=== PATIENT | female | born 1995 | race Caucasian/White ===

== ENCOUNTER → 2017-10-11 13:23 | Outpatient (CLI) | payer SELFPAY ==
[2017-10-11 15:30] LABS: Chlamydia Trachomatis by PCR Negative (Negative); Neisserai gonorrhoeae by PCR Negative (Negative); Probe Check PASS; Sample Adequacy Control PASS; Specimen Processing Control PASS
[2017-10-17 14:54] LABS: HPV Reflexed? NOT INDICATED
== END ==
PROVIDERS: Visit Provider Obstetrics & Gynecology
DX: Z12.4 Encounter for screening for malignant neoplasm of cervix (principal)
CPT/HCPCS: 87491; 87591; 88175; G0145

== ENCOUNTER → 2017-10-17 16:12 | Outpatient (CLI) | payer SELFPAY ==
[2017-10-17 17:29] LABS: hCG Titer Quant., Serum < 1 mIU/mL (<9 non-preg)
[2017-10-18 10:24] LABS: Progesterone Level 0.41 ng/mL (See Comment)
== END ==
PROVIDERS: Family Provider Family Medicine; PCP Family Medicine; Visit Provider Obstetrics & Gynecology
DX: Z30.430 Encounter for insertion of intrauterine contraceptive device (principal)
CPT/HCPCS: 36415; 84144; 84702

== ENCOUNTER → 2018-12-25 10:11 | Outpatient (CLI) | payer SELFPAY ==
[2018-12-30 16:59] LABS: HPV Reflexed? NOT INDICATED
== END ==
PROVIDERS: Family Provider Family Medicine; PCP Family Medicine; Visit Provider Obstetrics & Gynecology
DX: Z12.4 Encounter for screening for malignant neoplasm of cervix (principal)
CPT/HCPCS: 88175; G0145

== ENCOUNTER → 2019-10-13 14:56 | Outpatient (CLI) | payer OTHER, SELFPAY ==
[2019-10-13 15:54] LABS: hCG Titer Quant., Serum 25760 mIU/mL (1-3)
== END ==
PROVIDERS: PCP Family Medicine; Visit Provider Obstetrics & Gynecology
DX: O20.0 Threatened abortion (principal); Z3A.00 Weeks of gestation of pregnancy not specified
CPT/HCPCS: 36415; 84702; 86900; 86901

== ENCOUNTER → 2019-10-15 15:10 | Outpatient (CLI) | payer OTHER, SELFPAY | PROVIDERS: PCP Family Medicine; Visit Provider Obstetrics & Gynecology | DX: O20.0 Threatened abortion (principal) | CPT/HCPCS: 36415; 84702 ==

== ENCOUNTER → 2019-10-20 | Outpatient (CLI) | payer OTHER, SELFPAY ==
[2019-10-20 18:53] LABS: Chlamydia Trachomatis by PCR Negative (Negative); Neisserai gonorrhoeae by PCR Negative (Negative); Probe Check PASS; Sample Adequacy Control PASS; Specimen Processing Control PASS
== END | disposition home or self-care (01) ==
LOC: LABSPEC 15:00
PROVIDERS: PCP Family Medicine; Visit Provider Obstetrics & Gynecology
DX: Z11.3 Encounter for screening for infections with a predominantly sexual mode of transmission (principal); Z32.01 Encounter for pregnancy test, result positive
CPT/HCPCS: 87491; 87591

== ENCOUNTER → 2019-11-03 13:51 | Outpatient (CLI) | payer OTHER, SELFPAY ==
[2019-11-03 15:53] LABS: Color, Urine Yellow (Yellow); Glucose, Dipstick Normal (Normal); Ketone-Dipstick Negative (Negative); Leukocyte Esterase-Dipstick 25 /ul (Negative); Nitrite-Dipstick Negative (Negative); Occult Blood-Urine Negative /ul (Negative); Protein-Dipstick Negative (Negative); Specific Gravity, Urine 1.015 (1.002-1.030); Urine Bilirubin Dipstick Negative (Negative); Urine Clarity Sl. Cloudy (Clear); Urine Urobilinogen Normal (Normal)
[2019-11-03 15:54] LABS: Amphetamine Urine VISTA NEGATIVE (<1000 ng/mL); Barbiturate Urine VISTA NEGATIVE (< 200 ng/mL); Benzodiazepine Urine VISTA NEGATIVE (< 200 ng/mL); Cocaine Urine VISTA NEGATIVE (< 300 ng/mL); Ecstacy Urine VISTA NEGATIVE (< 500 ng/mL); Methadone Urine VISTA NEGATIVE (< 300 ng/mL); PCP Urine VISTA NEGATIVE (< 25 ng/mL); THC Urine VISTA NEGATIVE (< 50 ng/mL); Vista UDS pH Range 6
[2019-11-03 15:59] LABS: Absolute Neutrophil Count 6.4 X10^3/uL (2.0-7.7); Basophil# 0.02 X10^3/uL; Basophil% 0.2 % (0-1); Eosinophil# 0.12 X10^3/uL; Eosinophils% 1.4 % (0-5); Hematocrit 40.5 % (37-47); Hemoglobin 13.9 g/dL (12.0-15.0); Lymphocyte % 16.3 % (19-41); Mean Corp Hgb Conc 34.3 g/dL (32-36); Mean Corpuscular Hgb 33.3 pg (27.0-32.0); Mean Corpuscular Volume 96.9 fL (81-99); Mean Platelet Vol. 11.7 fl (6.2-12.0); Monocyte# 0.65 X10^3/uL; Monocyte% 7.6 % (0-10); NRBC Flagged by Analyzer 0 % (0-5); Neutrophil # 6.36 X10^3/uL (2.7-7.7); Neutrophil % 74.3 % (47-70); Platelet Count 225 K/mm3 (150-450); RBC Distribution Width CV 11.9 % (11.6-14.6); RBC Distribution Width SD 41.9 fl (35.1-43.9); Red Blood Count 4.18 M/mm3 (4.2-5.4); White Blood Count 8.6 K/mm3 (4.4-11.0)
[2019-11-03 16:02] LABS: Thyroid Stim Hormone (TSH) 0.54 uIU/mL (0.358-3.74)
[2019-11-04 09:55] LABS: HIV - WCH Non-Reactive (Nonreactive); Hepatitis B Surface Antigen Non-Reactive (Nonreactive); Hepatitis C Antibody Non-Reactive (Nonreactive); Rubella IgG 24.6 IU/mL
[2019-11-05 01:57] LABS: Prenatal RPR NONREACTIVE (NONREACTIVE)
== END ==
PROVIDERS: PCP Family Medicine; Visit Provider Obstetrics & Gynecology
DX: Z34.81 Encounter for supervision of other normal pregnancy, first trimester (principal)
CPT/HCPCS: 36415; 80307; 81002; 84443; 85025; 86703; 86762; 86803; 87340

== ENCOUNTER 2019-12-13 05:47 | Emergency (ER) | payer OTHER, SELFPAY ==
[2019-12-13 05:47] VITALS: BP 111/84; PULSE 81; RESP 18; TEMP 36.8; O2SAT 99; BMI 29.5
--- NOTE | 2019-12-13 06:01 | US_ITS ---
STUDY: SECOND AND THIRD TRIMESTER OBSTETRICAL ULTRASOUND - LIMITED REASON FOR EXAM: Female, 24 years old VAGINAL BLEEDING W/ 28328 HCG LMP: September 01, 2019 PRIOR ULTRASOUND: None. TECHNIQUE: Transabdominal and Transvaginal TECHNICAL QUALITY: Adequate. FINDINGS: There is a single intrauterine fetus. The fetus is in a breech presentation. There is demonstrated cardiac activity with a heart rate of 152 bpm. There is a normal amniotic fluid volume. The largest amniotic fluid pocket measures 4.3 cm The placenta is posterior in location and is not low lying. There are Grade 1 placental changes. The cervix measures 4.0 cm in length. BIOMETRY: BPD: 3.1 cm: 15 weeks, 6 days HC: 11.4 cm: 15 weeks, 5 days AC: 9.7 cm: 15 weeks, 6 days FL: 1.7 cm: 15 weeks, 1 days Age by LMP: 14 weeks, 5 days. BONIFACIO by LMP: June 07, 2019. age by prior US: 15 weeks, 5 days. BONIFACIO by prior US: May 31, 2019. Estimated weight: 12+ grams, +/- 18 grams, 88 percentile. US/OB Limited With Biometrics IMPRESSION: Single intrauterine gestation 15 weeks 5 days with estimated due date May 31, 2019. Electronically Signed: Ruslan Martin MD at 8:26 EDT , Service support ,
[2019-12-13 06:14] LABS: Absolute Neutrophil Count 6.5 X10^3/uL (2.0-7.7); Basophil# 0.01 X10^3/uL; Basophil% 0.1 % (0-1); Eosinophil# 0.13 X10^3/uL; Eosinophils% 1.5 % (0-5); Hematocrit 38.4 % (37-47); Hemoglobin 13.1 g/dL (12.0-15.0); Mean Corp Hgb Conc 34.1 g/dL (32-36); Mean Corpuscular Hgb 33.2 pg (27.0-32.0); Mean Corpuscular Volume 97.2 fL (81-99); Mean Platelet Vol. 11.3 fl (6.2-12.0); Monocyte% 6.7 % (0-10); NRBC Flagged by Analyzer 0 % (0-5); Neutrophil # 6.51 X10^3/uL (2.7-7.7); Neutrophil % 73.3 % (47-70); Platelet Count 200 K/mm3 (150-450); RBC Distribution Width CV 12.1 % (11.6-14.6); RBC Distribution Width SD 43.5 fl (35.1-43.9); Red Blood Count 3.95 M/mm3 (4.2-5.4); White Blood Count 8.9 K/mm3 (4.4-11.0)
[2019-12-13 06:18] LABS: Bacteria 0 SEEN /hpf (None Seen); Mucous, Urine 0 SEEN /hpf (<or=2+); White Blood Cells 0 SEEN /hpf (0-5)
[2019-12-13 06:20] LABS: Color, Urine Yellow (Yellow); Glucose, Dipstick Normal (Normal); Ketone-Dipstick Negative (Negative); Leukocyte Esterase-Dipstick Negative /ul (Negative); Nitrite-Dipstick Negative (Negative); Occult Blood-Urine 250 /ul (Negative); Protein-Dipstick Negative (Negative); Specific Gravity, Urine 1.005 (1.002-1.030); Urine Bilirubin Dipstick Negative (Negative); Urine Clarity Clear (Clear); Urine Urobilinogen Normal (Normal)
[2019-12-13 06:29] LABS: Red Blood Cells-Urine 0-5 SEEN /hpf (0-5)
--- NOTE | 2019-12-13 06:29 | ED.VIS.GEN ---
History of Present Illness Chief Complaint: Vag Bld, Preg Informant: Patient Narrative: He 24-year-old A0 at 14 weeks gestation presenting with vaginal bleeding. She states she had an episode of this at 6 weeks which resolved. She had a confirmatory intrauterine ultrasound at 7 weeks and they stated that the baby was fine. She states it was done at this facility. She has not had rebleeding since last night when she started to feel blood. She describes a popping sound in her abdomen prior to the start of this. She does states she passed a clot the size of an egg. She did not see any tissue. She does not know if she is Rh+ or negative. Prior similar symptoms: Yes Past Medical History - Allergies and Home Meds Allergies/Adverse Reactions: Allergies No Known Allergies Allergy (Verified 12/13/19 05:51) Primary Care Physician: Alvaro Ervin DO [Primary Care Provider] - Prior records reviewed: Yes Lives: Spouse/ Significant Other Smoking Status: Never smoker Alcohol: None Drugs: None Review of Systems General: Denies: Chills, Fever Eyes: Denies: Visual changes - bilaterally ENT: Denies: Rhinorrhea, Sore throat Cardiovascular: Denies: Chest pain, Palpitations Respiratory: Denies: Dyspnea, Cough Gastrointestinal: Reports: Abdominal pain Genitourinary: Reports: - - Vaginal bleeding. Denies: Dysuria, Hematuria Musculoskeletal: Denies: Myalgias, Arthralgias Skin: Denies: Rash Neurological: Denies: Headache Physical Exam Vital Signs/Narrative: Vital Signs Temp Pulse Resp BP Pulse Ox 12/13/19 05:47 98.2 F 81 18 111/84 H 99 General: Well nourished, Well developed, No Acute Distress Head: Atraumatic Eyes: Perrl. Negative for: Pale conjunctiva ENT: Moist mucous membranes Cardiovascular: Regular rate, Regular rhythm Abdomen: Soft, Nontender : - - Cervical office appears closed however there in the posterior fornix. No other lesions are identified. Adnexal tenderness. Back: Negative for: Nontender Skin: Normal color, Pallor Diagnostic/Tx/Re-eval - Medical Decision Making Patient was seen and evaluated for vaginal bleeding. She states she did pass some clots as well. She is 14 weeks along. She has had bleeding in the past. She did not know she was Rh+ or negative so I did order this today. Serum quant is ordered. On pelvic exam she does have some blood in the posterior fornix however the cervical os appears closed. Given that she had some pain prior to this I did order an ultrasound which is pending. Patient will be signed out to incoming ED doc to follow-up on labs and imaging. Patient is medically stable at this time. ED Disposition - Plan for ED Patient: Disposition: Home or Assisted Living Instructions: ED Possible Miscarriage Threatened Referrals: Alvaro Ervin DO [Primary Care Provider] -
[2019-12-13 06:30] LABS: Squamous Epithelial Cells - UA 0-5 SEEN /hpf (5-10)
[2019-12-13 06:48] LABS: hCG Titer Quant., Serum 35799 mIU/mL (1-3)
[2019-12-13 08:08] VITALS: BP 105/74; PULSE 64; RESP 15
[2019-12-13 08:57] VITALS: BP 103/74; PULSE 67; RESP 14; O2SAT 100
== END 2019-12-13 08:58 | disposition home or self-care (01) ==
PROVIDERS: Emergency Provider Student in an Organized Health Care Education/Training Program; PCP Family Medicine
DX: O20.0 Threatened abortion (principal); Z3A.15 15 weeks gestation of pregnancy
CPT/HCPCS: 76816; 81001; 84702; 85025; 86900; 86901; 99282; A4216

== ENCOUNTER 2020-02-01 15:20 | Inpatient (IN) | payer SELFPAY, OTHER ==
[2020-02-01] VITALS (22 sets, daily range): BP systolic 111–127; BP diastolic 63–87; PULSE 82–112; RESP 16–22; TEMP 36.6–37.1; O2SAT 85–98; BMI 29.9
[2020-02-01] MEDS: Lactated Ringers 1,000 ML 999 ML IV (15:35)
[2020-02-01] MEDS: Ketorolac 30 MG/ML Syringe IV (15:45)
[2020-02-01] MEDS: Magnesium Sulfate 4gm/100mL 4 GM/100 ML IV.SOLN. IV (15:59)
[2020-02-01 16:05] LABS: Absolute Lymphocyte Count 1.41 X10^3/uL (0.83-4.51); Basophil# 0.01 X10^3/uL; Basophil% 0.1 % (0-1); Eosinophils% 0.8 % (0-5); Hematocrit 36.5 % (37-47); Hemoglobin 12.7 g/dL (12.0-15.0); Lymphocyte # 1.41 X10^3/ul (4.0); Lymphocyte % 11.4 % (19-41); Mean Corp Hgb Conc 34.8 g/dL (32-36); Mean Corpuscular Volume 97.6 fL (81-99); Mean Platelet Vol. 11.5 fl (6.2-12.0); Monocyte# 0.78 X10^3/uL; Monocyte% 6.3 % (0-10); NRBC Flagged by Analyzer 0 % (0-5); Neutrophil # 9.99 X10^3/uL (2.7-7.7); Neutrophil % 80.9 % (47-70); Platelet Count 221 K/mm3 (150-450); RBC Distribution Width CV 13.1 % (11.6-14.6); Red Blood Count 3.74 M/mm3 (4.2-5.4); White Blood Count 12.4 K/mm3 (4.4-11.0)
[2020-02-01] MEDS: Oxytocin 30 units/NS 500 ml 30 UNITS/500 ML IV.SOLN 334 UNITS IV (16:31)
[2020-02-01] MEDS: miSOPROStol 200 MCG Tablet 800 MCG VAGINAL (16:40)
--- NOTE | 2020-02-01 16:48 | HP.PCM_ITS ---
- Problem List (1) 21 weeks gestation of Status: Acute (2) labor Status: Acute Qualifiers: labor trimester: second trimester labor delivery status: with delivery in second trimester Fetus number: single or unspecified fetus Qualified Code(s): O60.12X0 - labor second trimester with delivery second trimester, not applicable or unspecified History Date of Admission: 02/01/20 Final BONIFACIO: 06/07/20 Final BONIFACIO Source: US <20 weeks Gestational age: 21 Weeks and 6 Days History of this : This is a 24 year-old, G [1], P [], at 21 6/7 weeks gestational age by LMP c/w 7w US with c/o painful contractions and vaginal pressure. complications -First trimester subchorionic bleed followed by intermittent second trimester bleeding Medical History: Medical History (Last Updated 02/01/20 @ 16:[address] Amber Alegria MD) Rheumatoid arthritis M06.9 Allergies No Known Allergies Allergy (Verified 12/13/19 05:51) Home Medications: Home Medications Pnv No.95/Ferrous Fum/Folic AC [ Caplet] 1 tab PO DAILY 12/13/19 Smoking Status: Never smoker Alcohol: None Number of Fetus(es): 1 NST - FHR Rate Baby A Baseline: 150 bpm History Past Pregnancies: Past Pregnancies Delivery Date Name GA/ Weeks Outcome Route Wt Infant Sex Labor Length Anesthesia Delivery Location Provider FOB Labs: Mom's Problem List Problem Status Onset Code 21 weeks gestation of Acute Z3A.21 labor Acute O60.00 Mom's Labs & Results 02/01/20 02/01/20 15:25 15:25 WBC 12.4 H RBC 3.74 L Hgb 12.7 Hct 36.5 L MCV 97.6 MCH 34.0 H MCHC 34.8 RDW Std Deviation 46.0 H RDW Coeff of Danielito 13.1 Plt Count 221 MPV 11.5 Immature Gran % (Auto) 0.500 Neut % (Auto) 80.9 H Lymph % (Auto) 11.4 L Cavalier % (Auto) 6.3 Eos % (Auto) 0.8 Baso % (Auto) 0.1 Absolute Neuts (auto) 10.0 H Absolute Lymphs (auto) 1.41 Nucleated RBC % 0 Blood Type A POSITIVE Antibody Screen NEGATIVE 11/03/2019 HCV Ab neg RPR nr HBsAg negative HIV neg Rubella immune TSH 0.54 uIU/mL GC/CT neg 12/24/2018 PAP NILM Social History Smoking Status Never smoker Marital status Rudy Expected Delivery Method: Spontaneous Vaginal Number of Visits: 6 Physical Exam Vitals: Vital Signs Temp Pulse Resp BP Pulse Ox 98.2 F 89 22 H 115/73 85 02/01/20 15:59 02/01/20 16:46 02/01/20 15:59 02/01/20 16:46 02/01/20 16:24 General: Alert, Oriented x3, Cooperative, - - uncomfortable with contractions HEENT: Atraumatic, Normocephalic Cardiovascular: Regular rate, Regular Rhythm Lungs: Normal air movement Abdomen: Soft, Non Tender, Non-Distended, Gravid Neurological: Neuro grossly intact HAND FLATWORK FINISHER: Normal external genitalia Estimated gestational size: Appropriate for gestational size Presentation: Breech Cervix Dilation (cm): 10 - BBOW Station: 1 Effacement (%): 100 Assessment/Plan All Active Problems (Last Updated 02/01/20 @ 16:[address] Amber Alegria MD) 21 weeks gestation of (Acute) labor (Acute) This is a 24 year-old, G [1], P [], at 21 6/7 weeks gestational age. -Fetus mishel breech on US with EFW 480g - periviable by weight, however, non- viable by gestational age - reviewed with patient and high risk for fe carlos/ mortality and morbidity associated with delivery at periviability. Discussed with patient and spouse - anticipate vaginal delivery - r/b/i/a reviewed. Discussed comfort care versus intervention following delivery. Patient reported she wanted everything done. Pediatrics consultation obtained at bedside with plan to complete initial assessment to determine if intervention appropriate given gestational age. -Patient declines epidural. IV pain medication administered. IV Magnesium for neuroprotection ordered. -Patient and spouse given opportunity to ask questions and questions answered to their satisfaction.
--- NOTE | 2020-02-01 17:23 | PCM.OPRPT ---
Problem List (1) 21 weeks gestation of Status: Acute (2) labor Status: Acute Qualifiers: labor trimester: second trimester labor delivery status: with delivery in second trimester Fetus number: single or unspecified fetus Qualified Code(s): O60.12X0 - labor second trimester with delivery second trimester, not applicable or unspecified Vaginal Delivery Maternal Presentation: Active Labor Amniotic Membrane Rupture Type: Spontaneous Rupture of Membrane time: 02/01/20 1530h Amniotic Fluid Description: Bloody Final BONIFACIO: 06/07/20 Final BONIFACIO Source: US <20 weeks Gestational age: 21 Weeks and 6 Days doctor who attended delivery (if requested by OB): Farrukh Murry Date of Procedure: 02/01/20 Pre-Operative Diagnosis: 21 6/7 weeks gestation, complete breech presentation Post-Operative Diagnosis: 21 6/7 weeks gestation, complete breech presentation Surgery/ Procedure Performed: Spontaneous Vaginal Delivery Type of Anesthesia: None Description of Procedure: Patient was FD with BBOW and reported need to push. She pushed with spontaneous rupture of membranes. With continued expulsive efforts the breech delivered spontaneously and followed by body and head revealing a living male . The body was placed into a plastic covering, the cord was doubly clamped and cut and the passed to nursery personnel for further assessment. The FHR was monitored during this course with some difficulty tracing, but appeared to remained present with periodic decelerations to 80s bpm. The placenta delivered spontaneously and appeared intact on inspection. Sponge count was correct. Presentation: Vertex Placental Delivery Description: Spontaneous Placenta Disposition: [facility] Cord Vessel Description: 3 Vessels Cord Entanglement: None Estimated Blood Loss: 300 ml A gender: Male Episiotomy Description: None Laceration: None Medications given after delivery: IV Pitocin, - - misoprostol AL Complications: None
--- NOTE | 2020-02-01 18:10 | DCINST_ITS ---
Discharge Diet: No Restrictions Discharge Activity: Return to Normal Activity, May Shower, May Take a Tub Bath May resume sexual activity in: 4-6 weeks Additional Instructions: If you experience any of the following, contact your healthcare provider. * Bleeding that soaks a pad every hour for 2 hours * Fever 100.4 or higher * Unrelieved incision or abdominal pain * Swelling, redness, discharge or bleeding from your incision or episiotomy site * Your incision begins to separate * Problems urinating (including inability to urinate or burning while urinating). * Visual changes * Severe headache * Flu-like symptoms * Pain or redness in one of both of your breasts * Pain, warmth, tenderness or swelling in your legs, especially the calf area * Frequent nausea and vomiting * Symptoms of depression or anxiety If you experience any of the following, call 911 or go to the nearest Emergency Room. * Chest pain * Problems breathing * Seizure activity * Partial or complete paralysis of a body part, slurred speech, weakness or drooping of the face, or a sudden inability to walk or hold your balance Allergies/Adverse Reactions: Allergies No Known Allergies Allergy (Verified 12/13/19 05:51) Medications to take at Discharge Pnv No.95/Ferrous Fum/Folic AC [ Caplet] 1 tab PO DAILY 12/13/19 Ibuprofen [Motrin] 600 mg PO Q8H PRN #30 tab 02/01/20 Please Follow Up With: Phoebe Hutchinson CNM - follow up When: 2-3 weeks Please Follow Up With: Phoebe Hutchinson CNM - visit When: 6 weeks Primary Care Physician: Alvaro Ervin DO [Primary Care Provider] - Test Results: Test results from this visit will be discussed in further detail at your follow- up appointment, if applicable.
--- NOTE | 2020-02-01 18:10 | PCM.DCVAG ---
Discharge Diet: No Restrictions Discharge Activity: Return to Normal Activity, May Shower, May Take a Tub Bath May resume sexual activity in: 4-6 weeks Additional Instructions: If you experience any of the following, contact your healthcare provider. Bleeding that soaks a pad every hour for 2 hours Fever 100.4 or higher Unrelieved incision or abdominal pain Swelling, redness, discharge or bleeding from your incision or episiotomy site Your incision begins to separate Problems urinating (including inability to urinate or burning while urinating). Visual changes Severe headache Flu-like symptoms Pain or redness in one of both of your breasts Pain, warmth, tenderness or swelling in your legs, especially the calf area Frequent nausea and vomiting Symptoms of depression or anxiety If you experience any of the following, call 911 or go to the nearest Emergency Room. Chest pain Problems breathing Seizure activity Partial or complete paralysis of a body part, slurred speech, weakness or drooping of the face, or a sudden inability to walk or hold your balance Allergies/Adverse Reactions: Allergies No Known Allergies Allergy (Verified 12/13/19 05:51) Medications to take at Discharge Pnv No.95/Ferrous Fum/Folic AC [ Caplet] 1 tab PO DAILY 12/13/19 Ibuprofen [Motrin] 600 mg PO Q8H PRN #30 tab 02/01/20 Please Follow Up With: Phoebe Hutchinson CNM - follow up When: 2-3 weeks Please Follow Up With: Phoebe Hutchinson CNM - visit When: 6 weeks Primary Care Physician: Alvaro Ervin DO [Primary Care Provider] - Test Results: Test results from this visit will be discussed in further detail at your follow-up appointment, if applicable.
== END 2020-02-01 22:56 | disposition home or self-care (01) | DRG 805 ==
LOC: WPOUT 15:26 → WP 15:26
PROVIDERS: Admitting Provider Obstetrics & Gynecology; PCP Family Medicine; Visit Provider Obstetrics & Gynecology
DX: O76 Abnormality in fetal heart rate and rhythm complicating labor and delivery (principal); O60.12X0 Preterm labor second trimester with preterm delivery second trimester, not applicable or unspecified; Z37.0 Single live birth; O32.1XX0 Maternal care for breech presentation, not applicable or unspecified; O42.012 Preterm premature rupture of membranes, onset of labor within 24 hours of rupture, second trimester; O20.8 Other hemorrhage in early pregnancy; O99.89 Other specified diseases and conditions complicating pregnancy, childbirth and the puerperium; M06.9 Rheumatoid arthritis, unspecified; Z3A.21 21 weeks gestation of pregnancy
CPT/HCPCS: 59025; 59050; 85025; 86850; 86900; 86901; 99218; J7120; G0378

== ENCOUNTER → 2020-03-08 12:37 | Outpatient (CLI) | payer OTHER, SELFPAY ==
[2020-02-01 15:21] VITALS: BMI 29.9
[2020-03-08 13:42] LABS: Erythrocyte Sedimentation Rate 38 mm/hr (0-20)
[2020-03-08 14:36] LABS: Vitamin D,25 Hydroxy 23.5 ng/mL
== END ==
PROVIDERS: PCP Family Medicine; Referring Provider Obstetrics & Gynecology; Visit Provider Obstetrics & Gynecology
DX: M06.9 Rheumatoid arthritis, unspecified (principal)
CPT/HCPCS: 36415; 82306; 85652; 86140

== ENCOUNTER → 2020-09-06 11:08 | Outpatient (CLI) | payer OTHER, SELFPAY ==
[2020-02-01 15:21] VITALS: BMI 29.9
[2020-09-06 14:05] LABS: Absolute Lymphocyte Count 1.27 X10^3/uL (0.83-4.51); Absolute Neutrophil Count 6.2 X10^3/uL (2.0-7.7); Basophil# 0.03 X10^3/uL; Basophil% 0.4 % (0-1); Eosinophil# 0.06 X10^3/uL; Eosinophils% 0.7 % (0-5); Hematocrit 39.9 % (37-47); Hemoglobin 13.1 g/dL (12.0-15.0); Lymphocyte # 1.27 X10^3/ul (4.0); Lymphocyte % 15.8 % (19-41); Mean Corp Hgb Conc 32.8 g/dL (32-36); Mean Corpuscular Hgb 31.9 pg (27.0-32.0); Mean Corpuscular Volume 97.1 fL (81-99); Mean Platelet Vol. 11.9 fl (6.2-12.0); Monocyte# 0.43 X10^3/uL; Monocyte% 5.4 % (0-10); NRBC Flagged by Analyzer 0 % (0-5); Neutrophil # 6.21 X10^3/uL (2.7-7.7); Neutrophil % 77.3 % (47-70); Platelet Count 233 K/mm3 (150-450); RBC Distribution Width CV 13.6 % (11.6-14.6); RBC Distribution Width SD 48.6 fl (35.1-43.9); Red Blood Count 4.11 M/mm3 (4.2-5.4)
[2020-09-06 14:47] LABS: HIV - WCH Non-Reactive (Nonreactive); Hepatitis B Surface Antigen Non-Reactive (Nonreactive); Hepatitis C Antibody Non-Reactive (Nonreactive); Rubella IgG Reactive (Nonreactive); Syphilis Antibodies Non-reactive
[2020-09-07 22:13] LABS: Chlamydia By Nucleic Acid AMP Negative (Negative)
[2020-09-08 16:34] LABS: Gonococcus By Nucleic Acid AMP Negative (Negative)
== END ==
PROVIDERS: PCP Family Medicine; Visit Provider Obstetrics & Gynecology
DX: Z34.81 Encounter for supervision of other normal pregnancy, first trimester (principal)
CPT/HCPCS: 36415; 85025; 86703; 86762; 86780; 86803; 87086; 87088; 87340; 87491; 87591

== ENCOUNTER 2020-10-08 11:17 | Emergency (ER) | payer SELFPAY, OTHER ==
[2020-02-01 15:21] VITALS: BMI 29.9
[2020-10-08 11:18] VITALS: BP 124/69; PULSE 85; RESP 16; TEMP 35.9; O2SAT 97; BMI 28.0
--- NOTE | 2020-10-08 11:35 | EDS_ITS ---
HPI HPI - Female History of Present Illness Chief Complaint: Informant: patient Pain Pain: Positive for Pelvic Pain Onset: Today Context: Gradual Onset Timing: Intermittent Quality: Positive for Cramping Current Severity: Mild Maximum Severity: Moderate Bleeding Issue: Negative for Vaginal bleeding Associated Symptoms Associated Symptoms: Positive for Frequency P: 1 Ab: 1 Narrative Narrative: The patient is a 25-year-old female who is blood type a positive presents to the emergency department with abdominal cramping. The patient is at approximately 17 weeks gestation. Her first was complicated by delivery at 21 weeks. She states this morning, she was having cramping that felt like contractions. States she states that they are about a half an hour apart. She does have some mild urinary frequency. She states she has not had much of an appetite but that is not atypical for her throughout this . She denies any fevers or chills. She denies any loss of fluids or vaginal bleeding. PFSH PFSH Medical History Rheumatoid arthritis Home Medications PNV cmb#95-ferrous fumarate-FA 1 tab PO DAILY 12/13/19 [History Last Taken Unknown] ibuprofen 600 mg PO Q8H PRN #30 tab 02/01/20 [Rx Last Taken Unknown] Allergy/AdvReac Type Severity Reaction Status Date / Time No Known Allergies Allergy Verified 10/08/20 11:31 Social History Smoking Status: Former smoker ROS ROS ED Constitutional Constitutional ED: Denies chills or fever(s) Eyes Eyes: Denies blurry vision or change in vision ENT ENT ED: Denies ear pain or sore throat Cardiovascular Cardiovascular: Denies chest pain or palpitations Respiratory/Chest Respiratory/Chest: Denies cough, dyspnea or dyspnea on exertion Gastrointestinal Gastrointestinal: Denies abdominal pain, nausea or vomiting Genitourinary Genitourinary ED: Denies dysuria or urinary frequency Musculoskeletal Musculoskeletal: Denies arthralgias or myalgias Integumentary Denies rash Neurologic Neurologic: Denies headache(s) or paresthesias Psychiatric Psychiatric: Denies anxiety or depression Endocrine Endocrinology: Denies polydipsia or polyuria Allergic/Immunologic Allergic/Immunologic ED: Denies urticaria EXAM Physical Exam Const Vital Signs: 10/08/20 11:18 Temperature 96.6 F L Temperature Source Temporal Pulse Rate 85 Respiratory Rate 16 Blood Pressure 124/69 H Blood Pressure Mean 87 Pulse Ox 97 Oxygen Delivery Method Room Air Positive well nourished and well developed General Appearance ED: well developed HEENT Reports normocephalic, head/scalp atraumatic and moist mucous membranes Eyes PERRL and EOMs intact bilaterally Neck no lymphadenopathy and supple General: Negative for tenderness Chest Wall inspection of chest normal Resp normal respiratory effort and clear to auscultation bilaterally Cardio regular rate, regular rhythm and no murmurs GI normal to inspection, nondistended, normoactive bowel sounds Palpation: Negative for tender, guarding or rebound tenderness present Back/Spine no CVA tenderness Cervical Spine: Negative for cervical spine tenderness Thoracic Spine / Upper Back: Negative for thoracic spinal tenderness Extremity normal to inspection General Extremety ED: Negative for tenderness Neuro oriented x3 and CN's II-XII intact bilaterally Neuro Narrative: No focal deficits appreciated. Sensorium / Orientation: alert Psych mental status grossly normal Skin no rashes or lesions noted, no wounds and skin turgor normal MDM MDM MDM Narrative Medical decision making narrative: Patient presents with abdominal cramping that is intermittent and every 30 to 40 minutes. She does have history of delivery. I did do bedside ultrasound. There is single live intrauterine . heart rate was 140 and reactive. There was good activity. We did obtain a urine which showed no evidence of infection. The patient was given a liter of fluids. With her history of delivery, I did discuss her care with Dr. Serrano. He agreed with plan for IV hydration. He also felt that the patient should follow up on Saturday for repeat cervical length measurement. There is no indication for emergent cerclage at this time as the patient does havimg contraction type cramping. The patient was given strict return precautions. She will be discharged home. Impression 1. Abdominal cramping Lab Data Attestation: I reviewed the patient's lab results. Labs: Laboratory Results - last 24 hr 10/08/20 11:30 Urine Color Yellow Urine Clarity Clear Urine pH 8.0 Ur Specific [place] 1.010 Urine Protein Negative Urine Glucose (UA) Normal Urine Ketones Negative Urine Occult Blood Negative Urine Nitrite Negative Urine Bilirubin Negative Urine Urobilinogen Normal Ur Leukocyte Esterase Negative Urine RBC 0 SEEN Urine WBC 0 SEEN Ur Squamous Epith Cells 0-5 SEEN Urine Bacteria 0 SEEN Urine Mucus 0 SEEN Discharge Plan Triage Chief Complaint: ED Provider: Tha Harrison Dx/Rx/DC Orders Instructions: ED Abdominal Pain, Early Prescriptions: No Action PNV cmb#95-ferrous fumarate-FA 1 EACH tablet 1 tab PO DAILY RF: 0 ibuprofen 600 MG tablet 600 mg PO Q8H PRN (Reason: pain) Qty: 30 RF: 0 Primary Care Provider: Alvaro Ervin Referrals: Alvaro Ervin DO [Primary Care Provider] - Amber Calderon MD [STAFF PHYSICIAN] - 2 Days
[2020-10-08 11:40] LABS: Bacteria 0 SEEN /hpf (None Seen); Mucous, Urine 0 SEEN /hpf (<or=2+); Red Blood Cells-Urine 0 SEEN /hpf (0-5); White Blood Cells 0 SEEN /hpf (0-5)
[2020-10-08 11:41] LABS: Color, Urine Yellow (Yellow); Glucose, Dipstick Normal (Normal); Ketone-Dipstick Negative (Negative); Leukocyte Esterase-Dipstick Negative /ul (Negative); Nitrite-Dipstick Negative (Negative); Occult Blood-Urine Negative /ul (Negative); Protein-Dipstick Negative (Negative); Urine Bilirubin Dipstick Negative (Negative); Urine Clarity Clear (Clear); Urine Urobilinogen Normal (Normal)
[2020-10-08 11:47] LABS: Squamous Epithelial Cells - UA 0-5 SEEN /hpf (5-10)
[2020-10-08] MEDS: 0.9% Normal Saline 1,000 ML 1000 ML IV (11:51)
[2020-10-08 12:41] VITALS: BP 110/75; PULSE 72; RESP 17; O2SAT 100
== END 2020-10-08 12:43 | disposition home or self-care (01) ==
LOC: ED 12:07
PROVIDERS: Emergency Provider Emergency Medicine; PCP Family Medicine
DX: O26.891 Other specified pregnancy related conditions, first trimester (principal); R10.2 Pelvic and perineal pain; O99.891 Other specified diseases and conditions complicating pregnancy; M06.9 Rheumatoid arthritis, unspecified; Z3A.17 17 weeks gestation of pregnancy; Z87.891 Personal history of nicotine dependence
CPT/HCPCS: 81001; 96360; 99283; J7030

== ENCOUNTER 2020-10-08 17:03 | Emergency (ER) | payer SELFPAY, OTHER ==
[2020-10-08 11:18] VITALS: BMI 28.0
[2020-10-08 17:04] VITALS: BP 117/80; PULSE 91; RESP 16; TEMP 36.9; O2SAT 98; BMI 30.6
[2020-10-08 17:07] VITALS: BP 117/80; PULSE 91; RESP 16; TEMP 36.9; O2SAT 98
--- NOTE | 2020-10-08 17:40 | US_ITS ---
STUDY: SECOND AND THIRD TRIMESTER OBSTETRICAL ULTRASOUND - LIMITED REASON FOR EXAM: Female, 25 years old. Question ruptured membranes at 16 weeks. LMP: 06/24/2020. PRIOR ULTRASOUND: None. TECHNIQUE: Transabdominal TECHNICAL QUALITY: Adequate. FINDINGS: There is a single intrauterine fetus. The fetus is in an transverse lie with the head on the maternal left side. There is demonstrated cardiac activity with a heart rate of 135 bpm. There is decreased amniotic fluid volume consistent with oligohydramnios. The largest amniotic fluid pocket measures 1.4 x 0.7 cm. The placenta is fundal and posterior. There are Grade 1 placental changes. There are 2 places where the placenta is slightly pulled away from the uterine wall. These measure 3 x 0.8 cm and 2.6 x 0.9 cm respectively. The cervix measures 4.7 cm cm in length. Age by LMP: 17 weeks, 1 days. BONIFACIO by LMP: 03/17/2021. US/OB Limited (No Biometrics) IMPRESSION: 1. Almost no amniotic fluid noted. A small pocket is noted as above. 2. Live single intrauterine . 2. Area. Possible placental detachment in the fundus. Electronically Signed: Donny Greene DO at 19:49 EDT Tel [phone], Service support ,
[2020-10-08 18:04] VITALS: BP 108/74; PULSE 81; RESP 16; O2SAT 99
--- NOTE | 2020-10-08 18:06 | NURSING ---
awaiting pt arrival by david, pt EDC 03/17/21 [address] Nguyen. states feeling a tissue like bag protruding from vagina when she got home from ER and was going to bathroom. when she reached for phone states gush of fluid clear, then small amt bleeding and cramping started. Unable to tow picker fhr with doppler. only picking up maternal heart rate, SVE done unable to reach cervix in position pt was in, no fetus in vagina noted. no active bleeding or leaking of fluid. Dr Amato in room to do U/S states fhr 140. pt has hx of loss. Dr Amato calling Dr Serrano to give report.
[2020-10-08 18:07] VITALS: BP 108/74; PULSE 81; RESP 16; TEMP 36.9; O2SAT 99
[2020-10-08 19:00] VITALS: BP 107/73; PULSE 80; PULSE 89; RESP 15; RESP 16; TEMP 36.9; O2SAT 98; O2SAT 99
--- NOTE | 2020-10-08 20:19 | EDS_ITS ---
HPI HPI - Female History of Present Illness Chief Complaint: Informant: patient and spouse/S.O. Narrative Narrative: Patient presents with concerns that her water broke. Patient is currently 16 weeks . She was seen in the ER earlier today with abdominal cramping and concerns that she was having contractions. Ultrasound at bedside at that time showed active fetus with heart rate of 140s. She was advised to follow-up with her OB on Saturday for repeat ultrasound to measure cervical length. Patient states that after returning home she continued to have what she describes as contractions. When she went to the restroom she noted a saclike product with some fluid in it that passed along with a lot of fluid. She believes her water broke. She states after this occurred her cramping actually significantly improved. Patient had 1 prior with delivery at 21 weeks. She has been having her cervix measured every 2 weeks in the office. [facility] Medical History Rheumatoid arthritis Home Medications aspirin 81 mg PO DAILY 10/08/20 [History Last Taken Unknown] cholecalciferol (vitamin D3) [Vitamin D3] 5,000 unit PO DAILY 10/08/20 [History Last Taken Unknown] prenat.vits,lisseth,zdi-ywbg-ojkyo [ #2] 1 tab PO DAILY 10/08/20 [History Last Taken Unknown] Allergy/AdvReac Type Severity Reaction Status Date / Time No Known Allergies Allergy Verified 10/08/20 17:08 Social History Smoking Status: Former smoker ROS ROS ED Constitutional Constitutional ED: Denies chills or fever(s) Eyes Eyes: Denies change in vision ENT ENT ED: Denies sore throat Cardiovascular Cardiovascular: Denies chest pain Respiratory/Chest Respiratory/Chest: Denies cough or dyspnea Gastrointestinal Gastrointestinal: Reports abdominal pain; Denies diarrhea, nausea or vomiting Genitourinary Genitourinary ED: Denies dysuria Musculoskeletal Musculoskeletal: Denies back pain Integumentary Denies rash Neurologic Neurologic: Denies headache(s) or weakness Psychiatric Psychiatric: Denies anxiety or depression Endocrine Endocrinology: Denies polydipsia or polyuria Allergic/Immunologic Allergic/Immunologic ED: Denies urticaria EXAM Physical Exam Const Vital Signs: 10/08/20 17:04 10/08/20 17:07 10/08/20 18:04 Temperature 98.4 F 98.4 F Temperature Source Temporal Temporal Pulse Rate 91 91 81 Respiratory Rate 16 16 16 Blood Pressure 117/80 117/80 108/74 Blood Pressure Mean 92 92 85 Pulse Ox 98 98 99 Oxygen Delivery Method Room Air Room Air Room Air 10/08/20 18:07 10/08/20 19:00 10/08/20 20:21 Temperature 98.4 F 98.4 F Temperature Source Temporal Temporal Pulse Rate 81 89 83 Respiratory Rate 16 15 16 Blood Pressure 108/74 107/73 107/72 Blood Pressure Mean 85 84 Pulse Ox 99 99 99 Oxygen Delivery Method Room Air Room Air Positive well nourished and well developed General Appearance ED: well developed HEENT Reports normocephalic and head/scalp atraumatic Eyes PERRL and EOMs intact bilaterally Neck supple Chest Wall inspection of chest normal and palpation of chest normal Resp normal respiratory effort and clear to auscultation bilaterally Cardio regular rate and regular rhythm GI normal to inspection, nondistended, normoactive bowel sounds Palpation: soft and tender suprapubic Back/Spine no CVA tenderness Extremity normal to inspection Neuro oriented x3 and no sensory deficits noted Sensorium / Orientation: alert Motor Exam: strength 5/5 throughout Psych mental status grossly normal Skin no rashes or lesions noted MDM MDM MDM Narrative Medical decision making narrative: Patient arrived via EMS. OB nurse was present in the emergency room. She was unable to obtain heart tones. Digital vaginal examination revealed her cervix to be high and posterior. She is unable to determine if patient was dilated. Minimal fluid or blood noted in the vaginal vault. On my arrival to the room ultrasound is performed. I do see fetus with heart tones of approximate 140 bpm. Formal ultrasound is ordered to determine amniotic fluid volume. Radiography Diagnostic Testing: Radiology Impression Obstetrics Ultrasound 10/08/20 17:40 IMPRESSION: 1. Almost no amniotic fluid noted. A small pocket is noted as above. 2. Live single intrauterine . 2. Area. Possible placental detachment in the fundus. Electronically Signed: Donny Greene DO at 19:49 EDT Tel [phone], Service support , Treatment and Re-Evaluation Comments:: Ultrasound returns with almost no amniotic fluid remaining. Placenta slightly pulled away. Fetus still has heart beat of 135. I spoke with Dr. Serrano, on-call for [employer]. He presented to the emergency room and evaluate the patient. At this time she has no cramping or pain. She would prefer to go home. If and when she goes into formal labor he advises patient can go directly to OB. Patient is to follow-up with her [employer], Dr. Meghan Alegria on Saturday. Discharge Plan Triage Chief Complaint: ED Provider: Tisha Amato Dx/Rx/DC Orders Clinical Impression: Threatened miscarriage Instructions: ED Possible Miscarriage ... Prescriptions: No Action aspirin 81 mg Tablet 81 mg PO DAILY RF: 0 #2 Tablet 1 tab PO DAILY RF: 0 cholecalciferol (vitamin D3) [Vitamin D3] 125 mcg (5,000 unit) tablet 5,000 unit PO DAILY RF: 0 Primary Care Provider: Alvaro Ervin Referrals: Alvaro Ervin DO [Primary Care Provider] - Amber Calderon MD [STAFF PHYSICIAN] - 10/10/20 Disposition Disposition: Home, self care Discharge Date/Time: 10/08/20 21:46
[2020-10-08 20:21] VITALS: BP 107/72; PULSE 83; RESP 16; O2SAT 99
== END 2020-10-08 21:46 | disposition home or self-care (01) ==
PROVIDERS: Emergency Provider Emergency Medicine; PCP Family Medicine
DX: O20.0 Threatened abortion (principal); O99.891 Other specified diseases and conditions complicating pregnancy; M06.9 Rheumatoid arthritis, unspecified; Z3A.16 16 weeks gestation of pregnancy; Z79.82 Long term (current) use of aspirin; Z87.891 Personal history of nicotine dependence
CPT/HCPCS: 76815; 99285

== ENCOUNTER 2020-10-09 01:10 | Inpatient (IN) | payer SELFPAY, OTHER ==
[2020-10-08 17:04] VITALS: BMI 30.6
[2020-10-09] VITALS (23 sets, daily range): BP systolic 91–122; BP diastolic 54–78; PULSE 85–110; RESP 18; TEMP 36.5–37.3; O2SAT 96–99; BMI 28.0
[2020-10-09] MEDS: Lactated Ringers 1,000 ML 999 ML IV (01:20)
[2020-10-09] MEDS: fentaNYL 100 MCG/2 ML Ampul IV (01:38)
[2020-10-09 01:47] LABS: Absolute Lymphocyte Count 1.56 X10^3/uL (0.83-4.51); Absolute Neutrophil Count 13.6 X10^3/uL (2.0-7.7); Basophil# 0.03 X10^3/uL; Basophil% 0.2 % (0-1); Eosinophil# 0.05 X10^3/uL; Eosinophils% 0.3 % (0-5); Hematocrit 36.7 % (37-47); Lymphocyte # 1.56 X10^3/ul (0.83-4.51); Lymphocyte % 9.6 % (19-41); Mean Corp Hgb Conc 35.4 g/dL (32-36); Mean Corpuscular Hgb 34.4 pg (27.0-32.0); Mean Corpuscular Volume 97.1 fL (81-99); Mean Platelet Vol. 11.3 fl (6.2-12.0); Monocyte# 1.02 X10^3/uL; Monocyte% 6.3 % (0-10); NRBC Flagged by Analyzer 0 % (0-5); Neutrophil # 13.55 X10^3/uL (2.7-7.7); Neutrophil % 83.2 % (47-70); Platelet Count 182 K/mm3 (150-450); RBC Distribution Width CV 13.2 % (11.6-14.6); Red Blood Count 3.78 M/mm3 (4.2-5.4); White Blood Count 16.3 K/mm3 (4.4-11.0)
[2020-10-09] MEDS: 0.9% Saline Lock 10 ML Syringe IV (02:23)
[2020-10-09] MEDS: Oxytocin 30 units/NS 500 ml 30 UNITS/500 ML IV.SOLN 334 UNITS IV (02:26)
--- NOTE | 2020-10-09 02:37 | PCM.HP.BLA ---
History and Physical Date of Admission: 10/09/20 ACOG ANTEPARTUM RECORD - HISTORY AND PHYSICAL (10/09/2020) Name: DELIA ORLANDO History of this : This is a 25 year old [id number] presents at 17 wks + 2 days gestation. Presented to emergency room yesterday with rupture of membranes and sent home on bedrest. Presents by squad to labor and delivery in active labor. OB Physician: Amber Alegria MD [place]'s Physician: UNDECIDED ...................................................................... : 1995 Age: 25 Address: [address] [place] [address] Phone: [phone] Insurance Carrier: [facility] [phone] Emergency Contact: KELVIN ORLANDO/JUSTIN [phone] ...................................................................... Final BONIFACIO: 03/17/21 By Ultrasound: 12 weeks 4 days PARITY: (G-Total Pregnancies P-Fullterm,Premature,Induced AB,Spont AB, Ectopics, Multiple,Living) BONIFACIO CONFIRMATION: By LMP: 06/10/20 Initial Exam: 03/17/21 By First Ultrasound Exam: 03/10/21 Final BONIFACIO: 03/17/21 OB PROBLEM LIST: 2nd cousin with Down Syndrome Declines genetic and carrier screening Hx of Delivery at 21wks , ordered 17OH-Progesterone, U/s CL screening, ASA Prefers no epidural. Plans to breastfeed. Office /chilbirth classes enc. Rheumatoid arthritis , on no meds ALLERGIES: No Known Allergies MEDICATIONS: aspirin 81 mg tablet,delayed release 1 PO QD progesterone micronized 200 mg capsule insert one capsule per VAGINA BID Supplement (s) [No Strength] Sunitha Rodríguez Fish Oil, 1600 mg Supplement (s) [No Strength] Garden of Life Organic PNV Vitamin D3 125 mcg (5,000 unit) tablet One pill by mouth once a day SOCIAL HISTORY: Smoking - used to smoke but quit Alcohol Use - denies drinking Diet - balanced Diet Lifestyle - Exercise - regular Employer - [employer] Job Description - Illicit Drug Use - denies use of street drugs Sexual Activity - Residence - lives with Place of - [place], [place] Spouse-Sig Other Name - Kelvin Spouse-Sig Other Occupation - Office work for [employer] Spouse-Sig Other Phone No - [phone] Children Name(s) - Percy ('20 3 hours after delivery) PRIOR DELIVERY HISTORY DEL DATE GEST LAB WT LB WT OZ TYPE ANES LABOR TX 07 Feb 13 21 8 1 3 Vag None yes ANTEPARTUM FLOW CHART VISIT GE RTC FU F F CO U U DATE WK MD WKS HT PN HR M SS BP ED WT CO GL D EF ST __ ____ ___ __ __ ___ __ __ __ ___ __ __ __ ___ __ October 09 SHM 4 16 + + 110/62 0 197 tr - Sep 07 JM 2 14 - + 106/64 0 194 ne ne ANTEPARTUM NOTE(S): Oct 04 2020: see note Sep 22 2020: COMPREHENSIVE ANTEPARTUM NOTE(S): Oct 08 2020: Call msg from 10:30 AM this morning. Pt of Dr. Meghan Alegria. Delia calling @ 17 wks with concern of pretty bad low back ache since last night and this morning, she also has cramps. Reports Hx 21 wk prior loss and is very worried she is going to have a miscarriage. No bleeding. Had 1st progesterone injection this week. Wants to be seen. Advised can go to ER for help w/pain; they can Oct 04 2020: Dleia is here for visit. She has several concerns today. She has leg cramps all the time. Reviewed gentle stretches, increased po fluids, can try Magnesium, calcium supplementation. She is using vaginal suppositories currently and first IM Progesterone to be given today. Asking if needs to continue the vaginal progesterone? Advised she does not likely need to continue these but aisha Oct 04 2020: Recommend calcium/magnesium for leg cramps. Discussed dietary sources also. Appetite doing well, mild fatigue. CL today 36-40mm. PTL, ROM precautions reviewed. Rpt CL in 4 weeks. Transition from vaginal to IM progesterone. Sep 22 2020: Delia is here for PNV. States she is feeling reallly well. Nausea is subsiding. Only a few episodes last week. No edema noted presently but adds that her feet do swell by end of day at times. No compliants today. Urine neg/neg. LSS Sep 22 2020: 14wk, pt was ordered 17OH-P but [employer] has not called her back to schedule this. This is to be followed up with with first injection needed at 16wks. Cervical lenghts q2wks ordered until 23wks. JM Sep 21 2020: NOB TELEHEALTH VISIT, 35 MINUTE DURATION. Delia is a 25 year old L0 with an BONIFACIO of 03/17/2021, current GA is 14 w 5 d. She resides with her , Kelvin, and she states that he is supportive; they have a supportive extended family as well. Delia delivered a son at 21 w 6 d in January of 2020, she states that she lived for 3 hours. Past history updated. She plans to delive Sep 06 2020: Delia is here for missed menses appt. She relates LMP of 06/10, + UPT today in office, approx EDC 03/14/21 which makes her 13 weeks zero days. She has mild nausea, occ emesis, and fatigue. She is . First ended at 21 weeks and 6 days with a labor and delivery and male did not survive. She has a history of Rheumatoid arthritis and currently stable with minimal sx re May 24 2020: Delia is here for f/u on fertility. LMP 05/14/20 regular and lasting 5 days. Expressed that they would like to try to conceive again. Medications and allergies updated. Fertility chart copied. LJ May 24 2020: PPP = 10, MCS 13 Mar 08 2020: Delia is being seen for visit. Mother is with pt for visit. Pt had at 21 weeks and 6 days on 02/11/[address] Meghan Alegria at [facility]. Percy lived for 3 hours after delivery. Pt has questions for Dr. Meghan Alegria about why she went into labor and is there any testing she can do. Medications and allergies are up to date. EPDS total is 10. AM REVIEW OF SYSTEMS: GENERAL - Denies fever, or chills SKIN - Denies rash, new skin lesions, or change in moles EYES - Denies blurred vision, or change in visual acuity EARS - Denies ear pain, or difficulty hearing NOSE - Denies nasal congestion, discharge, or bleeding MOUTH - Denies sore throat, or difficulty swallowing NECK - Denies pain or swelling RESPIRATORY - Denies shortness of breath, cough, wheezing CARDIOVASCULAR - Denies palpitations, chest pain, orthopnea, PND, peripheral edema, syncope or claudication GASTROINTESTINAL - Denies nausea, vomiting, diarrhea, constipation, Denies abdominal pain, melena and or bright red blood GENITOURINARY - Denies dysuria, frequency of urination, urgency, or hesitancy MUSCULOSKELETAL - Denies joint or muscle pain, or back pain NEUROLOGICAL - Denies localized numbness, weakness, or tingling PSYCHIATRIC - Denies depression, anxiety, substance abuse or suicide attempts ENDOCRINE - Denies heat or cold intolerance, weight loss or gain, increasing thirst HEMATO-IMMUNOLOGIC - Denies easy bruising, bleeding, oral ulcerations or recurrent infections GENETICS SCREENING: Age 35+ years: No Thalassemia: No Neural Tube Defect: No Down Syndrome: Yes Cousin CHARLA-SACHS: No Sickle Cell Disease: No Hemophilia: No Musc. Dystrophy: No Cystic Fibrosis: No-declines screening [place] Chorea: No Mental Retardation: No Fragile X: No Other genetic: No Other defects: No SABs/still births: 21 w loss Drugs since LMP: No INFECTION HISTORY: High risk AIDS: No High risk Hepatitis: No Exposed to TB: No Exposed to Herpes: No Rash/viral illness since LMP: No History of STD: No MENSTRUAL HISTORY: *Menses Amount/Duration: 5-6 DAYSMenses Regularity: RegularFrequency: monthlyMenarche (Age Onset): 11* PAST SUMMARY: PARITY: 1. Total Pregnancies............ 2 2. Full Term Pregnancies........ 0 3. Premature.................... 1 4. Abortions - Induced.......... 0 5. Abortions - Spontaneous...... 0 6. Ectopics..................... 0 7. Multiple Births.............. 0 8. Living Children.............. 0 PAST #1: Date of :.................. 02/01/20 Gestation Weeks:................ 21 Length of labor(hours):......... 8 Sex:............................ M Weight-lbs:............... 1 Weight-oz:................ 3 Type of Delivery:............... Vag Type of Anesthesia:............. None Place of Delivery:.............. [place] Treatment of Labor?:.... yes Comment: LIVED 3 H, [place] PHYSICAL EXAMINATION General Appearence: 25 yo female in no acute distress Vital Signs: AF, VSS Heart: RRR without rubs or gallops Lungs: CTA x 2 Breasts: deferred Abdomen: gravid Pelvis: Cervix: Presentation: cephalic Station: Fetus: Size: AGA Movement: present Heart: present LAB TEST(S) ORDERED SINCE:06/20/20 10/08/2020 CBC W/DIFF, AUTOMATED 09/08/2020 CULTURE, URINE 09/08/2020 CHLAMYDIA/GC HOME APTIMA 09/06/2020 RUBELLA IGG 09/06/2020 T AND S-NO CHARGE W/PNP 09/06/2020 L509.8000 09/06/2020 HIV - [facility] 09/06/2020 HEPATITIS C ANTIBODY 09/06/2020 HEPATITIS B SURFACE ANTIGEN 09/06/2020 CBC W/DIFF, AUTOMATED == ==== Order Observation Description Value Ref_Range A* Site == ==== CBC W/DIFF, AUT NOTE PADRON CBC W/DIFF, AUT WBC K/mm3 4.4-11.0 ML DUPLICATE CBC W/DIFF, AUT RBC M/mm3 4.2-5.4 ML DUPLICATE CBC W/DIFF, AUT HGB g/dL 12.0-15.0 ML DUPLICATE CBC W/DIFF, AUT HCT 37-47 ML DUPLICATE CBC W/DIFF, AUT MCV fL 81-99 ML DUPLICATE CBC W/DIFF, AUT MCH pg 27.0-32.0 ML DUPLICATE CBC W/DIFF, AUT MCHC g/dL 32-36 ML DUPLICATE CBC W/DIFF, AUT RDW CV 11.6-14.6 ML DUPLICATE CBC W/DIFF, AUT RDW SD fl 35.1-43.9 ML DUPLICATE CBC W/DIFF, AUT PLT K/mm3 150-450 ML DUPLICATE CBC W/DIFF, AUT NEUT% 47-70 ML DUPLICATE CBC W/DIFF, AUT ABSOLUTE NEUT X10 3/uL 2.0-7.7 ML DUPLICATE CBC W/DIFF, AUT NOTE PADRON CBC W/DIFF, AUT WBC 16.3 K/mm3 4.4-11.0 H ML CBC W/DIFF, AUT RBC 3.78 M/mm3 4.2-5.4 L ML CBC W/DIFF, AUT HGB 13.0 g/dL 12.0-15.0 ML CBC W/DIFF, AUT HCT 36.7 37-47 L ML CBC W/DIFF, AUT MCV 97.1 fL 81-99 ML CBC W/DIFF, AUT MCH 34.4 pg 27.0-32.0 H ML CBC W/DIFF, AUT MCHC 35.4 g/dL 32-36 ML CBC W/DIFF, AUT RDW CV 13.2 11.6-14.6 ML CBC W/DIFF, AUT RDW SD 47.0 fl 35.1-43.9 H ML CBC W/DIFF, AUT PLT 182 K/mm3 150-450 ML CBC W/DIFF, AUT MPV 11.3 fl 6.2-12.0 ML CBC W/DIFF, AUT NEUT% 83.2 47-70 H ML CBC W/DIFF, AUT LY% 9.6 19-41 L ML CBC W/DIFF, AUT MONO% 6.3 0-10 ML CBC W/DIFF, AUT EO% 0.3 0-5 ML CBC W/DIFF, AUT BASO% 0.2 0-1 ML CBC W/DIFF, AUT IG% 0.400 0.0-0.9 ML IG% - Immature Granulocytes (promyelocytes, myelocytes and metamyelocytes) > 1% indicates that a LEFT SHIFT is Present. CBC W/DIFF, AUT ABSOLUTE NEUT 13.6 X10 3/uL 2.0-7.7 H ML CBC W/DIFF, AUT ABSOLUTE LYMPH 1.56 X10 3/uL 0.83-4.51 ML CBC W/DIFF, AUT NUCLEATED RBC 0 0-5 ML CHLAMYDIA/GC NA NOTE PADRON CHLAMYDIA/GC NA CHLAMY,NUC ACID Negative Negative LCI CHLAMYDIA/GC NA GC BY NUC ACID Negative Negative LCI Performed at: =G - [facility] [address] [id number] Dean Of Admissions: Nancy Swenson MD, Phone: [phone] CULTURE, URINE NOTE PADRON PN N [facility]~[address] [place], [address]~ T AND AB SCREEN GEL NEGATIVE ML HEPATITIS C ANT NOTE PADRON HEPATITIS C ANT HEPATITIS C AB Non-Reactive Nonreactive ML Non Reactive: < 0.8 Equivocal: >/= 0.8 to < 1.0 Reactive: >/= 1.0 The CDC recommends that a reactive/equivocal HCV antibody result be followed up by the HCV Nucleic Acid Amplification test (053152) HEPATITIS B CAM NOTE PADRON HEPATITIS B CAM HEP B SURF AG Non-Reactive Nonreactive ML HIV - [facility] NOTE PADRON HIV - [facility] HIV Non-Reactive Nonreactive ML L509.8000 NOTE PADRON L509.8000 SYPHILIS ABS Non-reactive ML RUBELLA IGG NOTE PADRON RUBELLA IGG RUBELLA IGG Reactive Nonreactive ML Antibody Results Interpretation of Immune Status Non Reactive Presumed Non-Immune Equivocal Equivocal Reactive Presumed Immune CBC W/DIFF, AUT NOTE PADRON CBC W/DIFF, AUT WBC 8.0 K/mm3 4.4-11.0 ML CBC W/DIFF, AUT RBC 4.11 M/mm3 4.2-5.4 L ML CBC W/DIFF, AUT HGB 13.1 g/dL 12.0-15.0 ML CBC W/DIFF, AUT HCT 39.9 37-47 ML CBC W/DIFF, AUT MCV 97.1 fL 81-99 ML CBC W/DIFF, AUT MCH 31.9 pg 27.0-32.0 ML CBC W/DIFF, AUT MCHC 32.8 g/dL 32-36 ML CBC W/DIFF, AUT RDW CV 13.6 11.6-14.6 ML CBC W/DIFF, AUT RDW SD 48.6 fl 35.1-43.9 H ML CBC W/DIFF, AUT PLT 233 K/mm3 150-450 ML CBC W/DIFF, AUT MPV 11.9 fl 6.2-12.0 ML CBC W/DIFF, AUT NEUT% 77.3 47-70 H ML CBC W/DIFF, AUT LY% 15.8 19-41 L ML CBC W/DIFF, AUT MONO% 5.4 0-10 ML CBC W/DIFF, AUT EO% 0.7 0-5 ML CBC W/DIFF, AUT BASO% 0.4 0-1 ML CBC W/DIFF, AUT IG% 0.400 0.0-0.9 ML IG% - Immature Granulocytes (promyelocytes, myelocytes and metamyelocytes) > 1% indicates that a LEFT SHIFT is Present. CBC W/DIFF, AUT ABSOLUTE NEUT 6.2 X10 3/uL 2.0-7.7 ML CBC W/DIFF, AUT ABSOLUTE LYMPH 1.27 X10 3/uL 0.83-4.51 ML CBC W/DIFF, AUT NUCLEATED RBC 0 0-5 ML Urine Culture Below infection level. ORGANISM 1: Mixed Gram Positive Organisms Allen Count 1000-10,000 MIX CULTURE Mixed contaminants. Submit a new specimen if indicated. A POSITIVE == ==== Impression /Plan: 17 wks + 2 days intrauterine with premature rupture of membranes and likely incompetent cervix. Preparations in progress for delivery.
--- NOTE | 2020-10-09 02:44 | EX.PCM.OBRPT ---
Assessment & Plan (1) premature rupture of membranes (PPROM) delivered, current hospitalization: Maternal Data Information Final BONIFACIO: 03/17/21 Final BONIFACIO Source: US <20 weeks Gestational age: 17 weeks 2 days Vaginal Delivery Maternal Presentation Maternal Presentation: Active Labor and Spontaneous Rupture of Membranes Maternal Presentation: 25-year-old 2 para 1 presents to labor and delivery via squad with labor at 17 weeks 2 days gestation. Patient had presented yesterday to the emergency department after rupture of membranes and was noted on ultrasound to have a no fluid around the baby. She was not in labor and was sent home on bedrest. After the patient got home she started having severe cramps and pain and called the squad as she does not have other emergency transportation. Operative Information Type of Anesthesia: None Estimated Blood Loss: 400 cc Fluids Replaced: Crystalloid Findings Description of Procedure: Spontaneous vaginal delivery of a nonviable male appropriate for gestational age of 17 weeks. Placenta was delivered approximately 1 hour later spontaneously. After delivery of the placenta minimal vaginal bleeding was noted. Presentation: Vertex Amniotic Membrane Rupture Type: Spontaneous Placental Delivery Description: Spontaneous Placenta Disposition: [facility] Specimen(s) Removed: Baby is to go home with parents; parents declined genetic studies. Infant A Gender: Male (1 minute): 0 (5 minute): 0 Post Vaginal Delivery Medications Given After Delivery: IV Pitocin Episiotomy Description: None Laceration: None Complication Complications: None
--- NOTE | 2020-10-09 02:50 | PCM.DC ---
Discharge Instructions Diet Discharge Diet: No restrictions Activity Discharge Activity: Return to Normal Activity, May Shower and May Take a Tub Bath May resume sexual activity in: 4-6 weeks and 3 weeks Additional Activity Instructions:: Nothing in the vagina for 3-4 weeks. You may return to work/school in 1-2 weeks. Dressing / Incision Call your doctor if you observe: Fever of 101 or Higher, Inability to urinate, Inability to have a bowel movement and Using more than one pad per hour Follow Up Care Please Follow Up With: Jeremy Serrano MD When: Call [phone] to make an appointment with your doctor in 3-4 weeks. Test Results: Test results from this visit will be discussed in further detail at your follow-up appointment, if applicable. Discharge Plan Admission Admit Date/Time: 10/09/20 01:10 Primary Reason for Your Visit: Premature Rupture of Membranes Attending Provider: Jeremy Serrano Primary Care Provider: Alvaro Ervin Discharge Orders/Prescriptions Prescriptions: Continued prenat.vits,lisseth,ssa-gjjw-gniag Tablet 1 tab PO DAILY RF: 0 cholecalciferol (vitamin D3) [Vitamin D3] 125 mcg (5,000 unit) tablet 5,000 unit PO DAILY RF: 0 Discontinued aspirin 81 mg Tablet 81 mg PO DAILY RF: 0 Referrals / Follow Up: Alvaro Ervin DO [Primary Care Provider] - Disposition Disposition (needs filled in before D/C Order can be placed): Home, self care
--- NOTE | 2020-10-09 05:40 | NURSING ---
Late entry: infant weighs 6.8 oz and 9 inches long.
== END 2020-10-09 09:20 | disposition home or self-care (01) | DRG 805 ==
PROVIDERS: Admitting Provider Obstetrics & Gynecology; PCP Family Medicine; Visit Provider Obstetrics & Gynecology
DX: O42.912 Preterm premature rupture of membranes, unspecified as to length of time between rupture and onset of labor, second trimester (principal); O60.12X0 Preterm labor second trimester with preterm delivery second trimester, not applicable or unspecified; Z37.1 Single stillbirth; O34.32 Maternal care for cervical incompetence, second trimester; O26.22 Pregnancy care for patient with recurrent pregnancy loss, second trimester; Z3A.17 17 weeks gestation of pregnancy; Z79.82 Long term (current) use of aspirin; Z87.891 Personal history of nicotine dependence
CPT/HCPCS: 59050; 85025; 86850; 86900; 86901; 99218; J7120; A4216; G0378

== ENCOUNTER → 2020-10-17 16:43 | Outpatient (CLI) | payer OTHER, SELFPAY ==
[2020-10-09 04:36] VITALS: BMI 28.0
[2020-10-17 17:08] LABS: Hematocrit 33.7 % (37-47); Hemoglobin 11.4 g/dL (12.0-15.0); Mean Corp Hgb Conc 33.8 g/dL (32-36); Mean Corpuscular Hgb 33.4 pg (27.0-32.0); Mean Corpuscular Volume 98.8 fL (81-99); Mean Platelet Vol. 10.8 fl (6.2-12.0); Platelet Count 237 K/mm3 (150-450); RBC Distribution Width CV 12.9 % (11.6-14.6); Red Blood Count 3.41 M/mm3 (4.2-5.4); White Blood Count 10.7 K/mm3 (4.4-11.0)
[2020-10-17 17:21] LABS: Anion Gap 6 (5-15); BUN 7 mg/dL (7-18); BUN/Creat Ratio 8.3 RATIO (10-20); Calcium,Total 9.2 mg/dL (8.5-10.1); Chloride 104 mmol/L (98-107); Creatinine, Serum 0.85 mg/dL (0.55-1.02); EST Glomerular Filtration Rate 86 mL/min (>60); Est Glom Filt Rate - Afr Amer 104 mL/min (>60); Glucose 107 mg/dL (74-106); Potassium 3.6 mmol/L (3.5-5.1); Sodium Level 135 mmol/L (136-145)
== END ==
PROVIDERS: PCP Family Medicine; Visit Provider Obstetrics & Gynecology
DX: O03.4 Incomplete spontaneous abortion without complication (principal)
CPT/HCPCS: 36415; 80048; 85027; 86850; 86900; 86901; J2405

== ENCOUNTER 2020-10-17 23:07 | Observation (INO) | payer OTHER, SELFPAY ==
[2020-10-09 04:36] VITALS: BMI 28.0
[2020-10-17] VITALS (12 sets, daily range): BP systolic 93–113; BP diastolic 50–95; PULSE 98–115; RESP 12–22; TEMP 36.6–38.1; O2SAT 98–100; BMI 27.3
[2020-10-17] MEDS: Lactated Ringers 1,000 ML 100 ML IV ×2 (19:10→23:17)
--- NOTE | 2020-10-17 19:24 | HP.PCM.OB_ITS ---
History and Physical Date of Admission: 10/17/20 Chief complaint: Fevers History of present illness: 25-year-old living 0 status post 17-week delivery of a nonviable with at home fevers, chills, and pelvic cramps. Found in the office to have thickened endometrial stripe. Patient denies headache, visual changes, ch est pain, shortness of breath, nausea vomiting. Obstetric history: G1: 21-week delivery demise 02/01/2020 G2: 17-week delivery 10/09/2020 Past medical history: Rheumatoid arthritis Medications: None Past surgical history: Tonsils and adenoids, right neck lymph node removal Allergies: No known drug allergies Family history: Denies history DVT or PE Social history: Denies a history of smoking, alcohol use, drug use Review of systems: Besides above pertinent positives a full review of systems was performed and found to be negative Physical exam: Vital signs: Blood pressure 103/71 pulse 107 temp 98 SPO2 99% on room air General: Appears tired and lethargic HEENT: Normocephalic atraumatic no cervical of adenopathy Cardiac/respiratory: Nonlabored breathing, no use of accessory muscles Abdomen: Soft, nontender, nondistended Pelvic exam: Normal external genitalia. Normal vaginal rugae. No vaginal bleeding noted. Cervix closed no lesions or masses, positive for yellowish disc harge. Uterus tender to palpation. No palpable adnexal masses. Extremities: No peripheral edema normal peripheral pulses Psych: Normal affect normal demeanor nonpressured speech In office ultrasound shows 4 cm complex thickened endometrial stripe. No other pathology noted. Assessment and plan: 25-year-old living 0 status post delivery of a 17-week nonviable infant with fevers, chills tender uterus with discharge secondary to endometritis. Ultrasound with complex lining cannot rule out retained products of conception. Reviewed results with patient and elects for suction dilation curettage risk benefits alternatives discussed including but not limited to visceral or vascular injury, prolonged hospitalization, blood loss and need for transfusion, reoperation. Patient stated understand and wished to proceed. All questions answered consent was signed. For suction dilation curettage now and to admit overnight for antibiotics for endometritis.
--- NOTE | 2020-10-17 19:30 | POC_PTH ---
PATIENT: DELIA FRIEDMAN LOC: [facility] U#:[id number] AGE/SX: ROOM: [facility]313 RE10/17/[address]: Dr. Angel Friedman MD : 1995 BED: 1 DIS: 10/19/2020 SPEC #: [id number] RECD: 10/18/20 07:43 STATUS: PILY REGenaro #: [id number] KEVAN: 10/17/20 19:[address]: Angel Friedman DEPT: SURGICAL PATHOLOGY RECD BY: Robyn Doyle ENTERED: 10/18/20 08:31 SP TYPE: PROD CONC OTHR DR: Dr. Alvaro Ervin, DO Tissues: Product of conception, NOS Procedures: Surgery Specimen Level IV HEADER OPERATION: Dilation and curettage, suction PRE-OP DIAGNOSIS: Retained products of conception TISSUE SUBMITTED: Products of conception MICROSCOPIC DIAGNOSIS Endometrium, curettage: Chorionic villi, decidualized stroma and trophoblastic cells consistent with products of conception. AM:sienna 10/19/2020 MICROSCOPIC DESCRIPTION Slides are reviewed. GROSS DESCRIPTION Received in fixative is one container labeled with the patient's name and designated products of conception. The specimen consists of multiple fragments of hemorrhagic soft tissue mixed with blood clot that in aggregate measure 15 x 15 x 4 cm. tissue is not identified. Chain Forming Machine Operator tissue is submitted in three cassettes. / SJ:sienna 10/18/20 TC:5 CPT: 74249
[2020-10-17] MEDS: Methylergonovine 0.2 MG/ML Ampul IM (20:03)
[2020-10-17 20:58] LABS: Absolute Lymphocyte Count 0.66 X10^3/uL (0.83-4.51); Absolute Neutrophil Count 7.7 X10^3/uL (2.0-7.7); Basophil# 0.01 X10^3/uL; Basophil% 0.1 % (0-1); Hemoglobin 9.6 g/dL (12.0-15.0); Lymphocyte # 0.66 X10^3/ul (0.83-4.51); Lymphocyte % 7.1 % (19-41); Mean Corp Hgb Conc 33.1 g/dL (32-36); Mean Corpuscular Hgb 33.8 pg (27.0-32.0); Mean Corpuscular Volume 102.1 fL (81-99); Mean Platelet Vol. 10.9 fl (6.2-12.0); Monocyte# 0.87 X10^3/uL; Monocyte% 9.3 % (0-10); NRBC Flagged by Analyzer 0 % (0-5); Neutrophil # 7.73 X10^3/uL (2.7-7.7); Platelet Count 221 K/mm3 (150-450); RBC Distribution Width CV 12.8 % (11.6-14.6); RBC Distribution Width SD 47.8 fl (35.1-43.9); Red Blood Count 2.84 M/mm3 (4.2-5.4); White Blood Count 9.3 K/mm3 (4.4-11.0)
--- NOTE | 2020-10-17 21:33 | PCM.OPRPT ---
Report of Operation Date of Procedure: 10/17/20 Pre-Operative Diagnosis: Retained products of conception, endometritis Post-Operative Diagnosis: Retained products of conception, endometritis Surgery/Procedure Performed:: Suction dilation curettage Description of Surgical Findings:: Surgeon: Angel Friedman MD Anesthesia: MAC EBL: 1000 cc Urine output: 100 cc IV fluids: 2200 cc Complications: Hemorrhage resolved with removal of products of conception along with Pitocin, Methergine Specimen: Products conception Findings: Cervix closed. After initial pass of the 7mm suction curettage noted to have initial hemorrhage, given IV oxytocin 10 units added to LR along with 10 units oxytocin intracervically injected. Hemorrhage improved. Noted to have large amount of products of conception bedside ultrasound showed thickened endometrial stripe and large amounts of clots. 12 mm curved suction curettage used and final amounts of products of conception passed with repeat hemorrhage, given Methergine 0.2 mg IM. After prolonged monitoring uterus firm and minimal bleeding noted. Gross evaluation of suction curettage canister noted to have large amounts of products of conception all what appears to be placental tissue. Consent: Patient status post 17-week delivery demise with fevers chills tender uterus with discharge noted to have thickened endometrial stripe concern for products of conception needed for suction dilation curettage. Patient understands risks of the procedure include but are not limited to visceral or vascular injury, prolonged hospitalization, blood loss and need for transfusion, reoperation. Patient states understanding wish to proceed. All questions are answered consent was signed. Procedure: Patient was brought to the OR where MAC anesthesia was found be adequate. 900 mg of clindamycin IV and gentamicin 5 mg/kg IV given for infection prophylaxis. Patient was prepared and draped in a dorsolithotomy position with yellowfin stirrups. Weighted speculum placed in posterior aspect of vagina and cervical dilators were used to dilate cervix. 7 mm curved suction curettage was used and above findings were noted. Hemorrhage treated as above. Bedside ultrasound with above findings. 12 mm curved suction curettage used and hemorrhage again treated as above. Intraoperative stat CBC sent. After prolonged monitoring along with evaluation of suction canister findings it was noted that large amounts of products of conception/placental tissue noted. Uterus was firm after above medications given. Bedside ultrasound performed postoperatively reassuring. Good hemostasis was noted at the finality of the case. All counts correct x2. Patient tolerated procedure well was brought to recovery in stable condition. x ray developer: None
[2020-10-17] MEDS: Ketorolac 30 MG/ML Syringe IV (22:01)
[2020-10-18] VITALS (8 sets, daily range): BP systolic 82–93; BP diastolic 45–59; PULSE 70–104; RESP 14–18; TEMP 36.4–37.2; O2SAT 96–100
[2020-10-18] MEDS: Acetaminophen 500 MG Tablet 1000 MG PO ×4 (00:58→17:48)
[2020-10-18] MEDS: Docusate Sodium 100 MG Capsule PO ×3 (00:58→21:05)
[2020-10-18] MEDS: Ketorolac 30 MG/ML Syringe IV ×3 (05:17→17:44)
[2020-10-18 05:56] LABS: Hematocrit 24.2 % (37-47); Hemoglobin 8.1 g/dL (12.0-15.0); Mean Corp Hgb Conc 33.5 g/dL (32-36); Mean Corpuscular Hgb 33.6 pg (27.0-32.0); Mean Corpuscular Volume 100.4 fL (81-99); Mean Platelet Vol. 10.9 fl (6.2-12.0); Platelet Count 167 K/mm3 (150-450); RBC Distribution Width CV 12.9 % (11.6-14.6); RBC Distribution Width SD 47.4 fl (35.1-43.9); Red Blood Count 2.41 M/mm3 (4.2-5.4); White Blood Count 6.8 K/mm3 (4.4-11.0)
--- NOTE | 2020-10-18 08:05 | PN.OBGYN_ITS ---
Subjective Subjective No overnight complaints. Pain well controlled. No vaginal bleeding. Denies fevers or chills. Overall feels much improved from yesterday, decreased malaise. Objective Data Objective Data Vital Signs: Vital Signs Temp Pulse Resp BP Pulse Ox 98.4 F 82 18 93/45 L 100 10/18/20 03:09 10/18/20 03:09 10/18/20 03:09 10/18/20 03:09 10/18/20 03:09 Oxygen Flow Rate (L/min) 2 Oxygen Delivery Method Nasal Cannula Weight: 184 lb 11.958 oz Body Mass Index (BMI) 27.3 Intake & Output: Intake and Output for Last 24 Hours 10/16/20 10/17/20 10/18/20 23:59 23:59 23:59 Intake Total 2675.92 / 2675.92 406 / 406 Output Total 100 / 100 320 / 320 Balance 2575.92 / 2575.92 86 / 86 Lab / Micro Data Result Diagrams: 10/18/20 05:38 Labs: Laboratory Results - last 24 hr 10/17/20 10/18/20 20:49 05:38 WBC 9.3 6.8 RBC 2.84 L 2.41 L Hgb 9.6 L 8.1 L Hct 29.0 L 24.2 L MCV 102.1 H 100.4 H MCH 33.8 H 33.6 H MCHC 33.1 33.5 RDW Std Deviation 47.8 H 47.4 H RDW Coeff of Danielito 12.8 12.9 Plt Count 221 167 MPV 10.9 10.9 Immature Gran % (Auto) 0.500 Neut % (Auto) 83.0 H Lymph % (Auto) 7.1 L [place] % (Auto) 9.3 Eos % (Auto) 0.0 Baso % (Auto) 0.1 Absolute Neuts (auto) 7.7 Absolute Lymphs (auto) 0.66 L Nucleated RBC % 0 Physical Exam Const alert, oriented x3 and no apparent distress HEENT normocephalic and moist oral mucous membranes Head and Scalp: atraumatic Eyes PERRL Neck full ROM and no lymphadenopathy Chest inspection of chest normal Resp normal respiratory effort, no retractions and no use of accessory muscles GI normal to inspection, nondistended, normoactive bowel sounds Extremity normal to inspection, full ROM and no clubbing, cyanosis or edema Psych mental status grossly normal, affect normal, speech normal and activity/motor behavior normal Assessment & Plan (1) Endometritis: PLAN: Postoperative day 1 status post suction dilation curettage with retained products of conception and endometritis. Continue gentamicin and clindamycin for 24 hours. Patient feeling much improved, educated patient on surgical findings and plan for future monitoring. Patient with questions on future pregnancies including delivery, discussed MFM specialist along with cerclage as a possibility. Intraoperative hemorrhage, now with no vaginal bleeding all reassuring. Acute blood loss anemia, vital signs stable patient asymptomatic we will continue to monitor. Likely home tomorrow based on evening start of antibiotics
[2020-10-18] MEDS: 0.9% Saline Lock 10 ML Syringe IV ×2 (12:03→17:44)
--- NOTE | 2020-10-18 15:19 | NURSING ---
TEXT SENT TO DR Kennedy [place], OB. PTS BP HAS BEEN LOW BUT WITHIN PARAMETERS AND TRIGGERING Q 1-2H VS. REQUESTING Q4H OVERRIDE IF BP IS WITHIN PARAMETERS.
--- NOTE | 2020-10-18 19:22 | PN.OBGYN_ITS ---
Subjective Subjective Patient feeling much improved. Continues to feel better. Denies fevers, chills. No vaginal bleeding Objective Data Objective Data Vital Signs: Vital Signs Temp Pulse Resp BP Pulse Ox 97.8 F 77 16 89/59 L 97 10/18/20 17:52 10/18/20 17:52 10/18/20 17:52 10/18/20 17:52 10/18/20 17:52 Oxygen Flow Rate (L/min) 2 Oxygen Delivery Method Room Air Weight: 184 lb 11.958 oz Body Mass Index (BMI) 27.3 Intake & Output: Intake and Output for Last 24 Hours 10/16/20 10/17/20 10/18/20 23:59 23:59 23:59 Intake Total 2675.92 / 2675.92 2112 / 2112 Output Total 100 / 100 1820 / 1820 Balance 2575.92 / 2575.92 292 / 292 Lab / Micro Data Result Diagrams: 10/18/20 05:38 Labs: Laboratory Results - last 24 hr 10/17/20 10/18/20 20:49 05:38 WBC 9.3 6.8 RBC 2.84 L 2.41 L Hgb 9.6 L 8.1 L Hct 29.0 L 24.2 L MCV 102.1 H 100.4 H MCH 33.8 H 33.6 H MCHC 33.1 33.5 RDW Std Deviation 47.8 H 47.4 H RDW Coeff of Danielito 12.8 12.9 Plt Count 221 167 MPV 10.9 10.9 Immature Gran % (Auto) 0.500 Neut % (Auto) 83.0 H Lymph % (Auto) 7.1 L [place] % (Auto) 9.3 Eos % (Auto) 0.0 Baso % (Auto) 0.1 Absolute Neuts (auto) 7.7 Absolute Lymphs (auto) 0.66 L Nucleated RBC % 0 Physical Exam Const alert, oriented x3 and no apparent distress HEENT normocephalic Head and Scalp: atraumatic Neck full ROM Resp normal respiratory effort, no retractions and no use of accessory muscles Extremity normal to inspection, full ROM and no clubbing, cyanosis or edema Psych mental status grossly normal, affect normal, speech normal and activity/motor behavior normal Assessment & Plan (1) Endometritis: PLAN: Postoperative day 1 status post suction dilation curettage after delivery of a 17-week demise. Endometritis continue gent and Clinda. No vaginal bleeding after hemorrhage with D&C, will repeat CBC tomorrow. Likely home tomorrow if stable
[2020-10-19 00:30] VITALS: BP 87/48; PULSE 79; RESP 16; TEMP 36.6; O2SAT 99
[2020-10-19] MEDS: Ketorolac 30 MG/ML Syringe IV ×2 (00:38→05:24)
[2020-10-19] MEDS: Acetaminophen 500 MG Tablet 1000 MG PO ×2 (00:38→05:24)
[2020-10-19 04:17] VITALS: BP 89/54; PULSE 76; RESP 16; TEMP 36.6; O2SAT 96
[2020-10-19 06:52] LABS: Absolute Lymphocyte Count 0.94 X10^3/uL (0.83-4.51); Basophil# 0.01 X10^3/uL; Basophil% 0.2 % (0-1); Eosinophil# 0.13 X10^3/uL; Eosinophils% 2.8 % (0-5); Hematocrit 22.9 % (37-47); Hemoglobin 7.5 g/dL (12.0-15.0); Lymphocyte # 0.94 X10^3/ul (0.83-4.51); Lymphocyte % 20.1 % (19-41); Mean Corp Hgb Conc 32.8 g/dL (32-36); Mean Corpuscular Volume 100.9 fL (81-99); Mean Platelet Vol. 11.5 fl (6.2-12.0); Monocyte# 0.53 X10^3/uL; Monocyte% 11.3 % (0-10); NRBC Flagged by Analyzer 0 % (0-5); Neutrophil # 3.04 X10^3/uL (2.7-7.7); Neutrophil % 65.2 % (47-70); Platelet Count 163 K/mm3 (150-450); RBC Distribution Width CV 13.2 % (11.6-14.6); RBC Distribution Width SD 48.5 fl (35.1-43.9); Red Blood Count 2.27 M/mm3 (4.2-5.4); White Blood Count 4.7 K/mm3 (4.4-11.0)
[2020-10-19 07:37] VITALS: O2SAT 95
[2020-10-19 08:15] VITALS: BP 96/59; PULSE 72; RESP 14; TEMP 36.4; O2SAT 100
[2020-10-19] MEDS: Docusate Sodium 100 MG Capsule PO (08:26)
--- NOTE | 2020-10-19 08:54 | PCM.PN.OB ---
Subjective Subjective No overnight complaints. Pain well controlled. Denies fever, chills, chest pain, shortness of breath, weakness. Patient states she continues to feel better. No vaginal bleeding. Objective Data Objective Data Vital Signs: Vital Signs Temp Pulse Resp BP Pulse Ox 97.5 F L 72 14 96/59 L 100 10/19/20 08:15 10/19/20 08:15 10/19/20 08:15 10/19/20 08:15 10/19/20 08:15 Oxygen Flow Rate (L/min) 2 Oxygen Delivery Method Nasal Cannula Weight: 184 lb 11.958 oz Body Mass Index (BMI) 27.3 Intake & Output: Intake and Output for Last 24 Hours 10/17/20 10/18/20 10/19/20 23:59 23:59 23:59 Intake Total 2675.92 / 2675.92 2218 / 2418 506 / 506 Output Total 100 / 100 1820 / 1970 300 / 300 Balance 2575.92 / 2575.92 398 / 448 206 / 206 Lab / Micro Data Result Diagrams: 10/19/20 06:00 Labs: Laboratory Results - last 24 hr 10/19/20 06:00 WBC 4.7 RBC 2.27 L Hgb 7.5 L Hct 22.9 L MCV 100.9 H MCH 33.0 H MCHC 32.8 RDW Std Deviation 48.5 H RDW Coeff of Danielito 13.2 Plt Count 163 MPV 11.5 Immature Gran % (Auto) 0.400 Neut % (Auto) 65.2 Lymph % (Auto) 20.1 [place] % (Auto) 11.3 H Eos % (Auto) 2.8 Baso % (Auto) 0.2 Absolute Neuts (auto) 3.0 Absolute Lymphs (auto) 0.94 Nucleated RBC % 0 Physical Exam Const alert, oriented x3, no apparent distress and average body habitus HEENT normocephalic Head and Scalp: atraumatic Neck full ROM and no lymphadenopathy Resp normal respiratory effort, no retractions and no use of accessory muscles GI normal to inspection, nondistended, normoactive bowel sounds Extremity normal to inspection, full ROM and no clubbing, cyanosis or edema Skin no rashes or lesions noted and no wounds Psych mental status grossly normal, affect normal, speech normal and activity/motor behavior normal Assessment & Plan (1) Endometritis: PLAN: Postop day 2 status post suction dilation curettage with retained products of conception endometritis after 17-week demise. Status post 24 hours of gentamicin and clindamycin. No home-going antibiotics indicated. Acute blood loss anemia stable, vital signs stable and patient asymptomatic. No fevers chills or vaginal bleeding okay to discharge home today. We will follow-up in 1 to 2 weeks in office. Educated patient on precautions at home.
--- NOTE | 2020-10-19 08:56 | PCM.DC.BLA ---
Discharge Summary Date of Admission: 10/17/20 Date of Discharge: 10/19/20 Summary: Patient arrived on 10/17/2020 with fevers chills and retained products of conception status post 17-week demise. Suction dilation curettage with hemorrhage occurred. Intraoperative blood loss controlled and patient remained with no bleeding postoperatively. Endometritis was diagnosed and treated with gentamicin clindamycin for 24 hours IV. Patient remained without fevers or chills. Patient remained stable and discharged home postoperative day 2. To follow-up in 1 to 2 weeks in office. Physical Exam Const alert, oriented x3 and no apparent distress HEENT normocephalic Head and Scalp: atraumatic Eyes PERRL Neck full ROM, no lymphadenopathy and supple Resp normal respiratory effort and no use of accessory muscles GI normal to inspection, nondistended, normoactive bowel sounds Extremity normal to inspection and full ROM Psych mental status grossly normal, cooperative, affect normal and speech normal Meaningful Use Info Meaningful Use Diagnoses (Choose all that apply): None applicable Discharge Plan Admission Admit Date/Time: 10/17/20 23:07 Primary Reason for Your Visit: Endometritis, retained products of conception Attending Provider: Angel Friedman Primary Care Provider: Alvaro Ervin Discharge Orders/Prescriptions Referrals / Follow Up: Alvaro Ervin DO [Primary Care Provider] - Angel Friedman MD [STAFF PHYSICIAN] - Within 2 Weeks Disposition Disposition (needs filled in before D/C Order can be placed): Home, self care
== END 2020-10-19 11:12 | disposition home or self-care (01) ==
LOC: SDC 10-18 12:14 → MS3 10-18 12:14
PROVIDERS: Admitting Provider Obstetrics & Gynecology; PCP Family Medicine; Visit Provider Obstetrics & Gynecology
PROC: (CPT 59812; principal; 2020-10-17 19:30)
DX: O03.4 Incomplete spontaneous abortion without complication (principal); M06.9 Rheumatoid arthritis, unspecified
CPT/HCPCS: 01965; 59812; 36415; 85025; 85027; 88305; 96361; 96365; 96366; 96375; 96376; 99218; 99251; J7030; J7120; A4216; G0378; G0379; G0463

== ENCOUNTER → 2021-05-01 16:41 | Outpatient (CLI) | payer SELFPAY ==
[2021-05-01 17:37] LABS: hCG Titer Quant., Serum < 1 mIU/mL (1-3)
== END ==
PROVIDERS: PCP Family Medicine; Visit Provider Obstetrics & Gynecology
DX: N92.6 Irregular menstruation, unspecified (principal)
CPT/HCPCS: 36415; 84702